=== PATIENT | male | born 1965 | race Caucasian/White ===

== ENCOUNTER 2017-02-06 12:14 | Emergency (ER) | payer BC ==
[2017-02-06 12:23] VITALS: BP 115/65; BMI 27.4
--- NOTE | 2017-02-06 12:33 | DR.GENAD ---
HPI - PCP Primary Care Physician: CAREY - Complaint/Symptoms Chief Complaint Doctors Comments: Patient states that he has had left flank for the past two hours. He has a history of kidney stones and this feels like one according to him. Chief Complaint:: PT THINKS HE HAS A KIDNEY STONE ON LEFT SIDE. PT STATES HE CAN 'T URINATE AND IS VOMITTING. - Source History Provided: Patient - Mode of Arrival Mode of Arrival: Ambulatory - Timing Onset of Chief Complaint: 02/06/17 PMH - PMH Past Medical History: Yes Past Medical History: CVA, Hypertension Past Medical History Comment: PACEMAKER Past Surgical History: Yes Surgical History: Cholecystectomy, Ortho Surgery Past Surgical History Comment: PACEMAKER - Family History History of Family Medical Conditions: Yes Family Medical History: Cancer, Coronary Artery Disease - Social History Does patient currently use any type of tobacco product: No Have you used tobacco products in the last 12 months: No Type of Tobacco Use: None Does any household member use tobacco: No Alcohol Use: None Do you use any recreational Drugs:: No Lives With: Alone Lives Where: Home - infectious screening In the last 2 months have you had wt loss of >10#?: NO Have you had fever, night sweats or hemotysis?: No Have you traveled outside the country in the last 6 months?: No Isolation: Standard ROS - Review of Systems Eyes: No Symptoms Reported ENTM: No Symptoms Reported Respiratoy: No Symptoms Reported Cardiovascular: No Symptoms Reported Gastrointestinal/Abdominal: No Symptoms Reported Genitourinary: Pain (left flank pain) Neurological: No Symptoms Reported Musculoskeletal: No Symptoms Reported Integumentary: No Symptoms Reported Hematologic/Lymphatic: No Symptoms Reported Endocrine: No Symptoms Reported Psychiatric: No Symptoms Reported All Other Systems: Reviewed and Negative PE - Vital Signs Vitals: Pulse Rate 74 Respiratory Rate 20 Blood Pressure [Left Arm] 184/81 Blood Pressure [Right Arm] 186/87 Blood Pressure 115/65 O2 Sat by Pulse Oximetry 98 - General Limitations: No Limitations General Appearance: Alert - Head Head Exam: Normal Inspection, Atraumatic - Eyes Eye exam: Normal Appearance, PERRL, EOMI - ENT ENT Exam: Normal Exam External Ear Exam: Normal External Inspection TM/Canal Exam: Bilateral Normal Nose Exam: Normal Nose Exam Mouth Exam: Normal Inspection Throat Exam: Normal Inspection - Neck Neck Exam: Normal Inspection, Full ROM - Chest Chest Inspection: Normal Inspection, Symmetric Chest Wall Rise - Respiratory Respiratory Exam: Normal Lung Sounds Bilat Respiratory Exam: Bilateral Clear to Auscultation - Cardiovascular Cardiovascular Exam: Regular Rate, Normal Rhythm - Abdominal Exam Abdominal Exam: Normal Inspection, Normal Bowel Sounds Abdominal Tenderness: negative: RUQ, RLQ, LUQ, LLQ, Epigastrium, Suprapubic, Diffuse, Mild, Moderate, Severe, Other - Extremities Extremities Exam: Normal Inspection, Full ROM - Back Back Exam: Normal Inspection, Full ROM, (L) CVA Tenderness - Neurologic Neurological Exam: Alert, Oriented X3, CN II-XII Intact - Psychiatric Psychiatric Exam: Normal Affect, Normal Mood - Skin Skin Exam: Warm, Dry, Intact ROR - Labs Reviewed Laboratory: Specimen Type Clean catch urine 02/06/17 12:35 Urine Color Mary (YELLOW) 02/06/17 12:35 Urine Appearance Cloudy (CLEAR) 02/06/17 12:35 Urine pH 5.0 (5.0 - 8.0) 02/06/17 12:35 Ur Specific [place] 1.030 (1.000-1.030) 02/06/17 12:35 Urine Protein 3+ (NEGATIVE) 02/06/17 12:35 Urine Glucose (UA) Negative (NEGATIVE) 02/06/17 12:35 Urine Ketones 1+ (NEGATIVE) 02/06/17 12:35 Urine Occult Blood 5+ (NEGATIVE) 02/06/17 12:35 Urine Nitrite Positive (NEGATIVE) 02/06/17 12:35 Urine Bilirubin 1+ (NEGATIVE) 02/06/17 12:35 Urine Urobilinogen 2+ (NORMAL) 02/06/17 12:35 Ur Leukocyte Esterase 1+ (NEGATIVE) 02/06/17 12:35 Urine RBC Tntc /HPF (NEGATIVE) 02/06/17 12:35 Urine WBC 2-4 /HPF (NEGATIVE) 02/06/17 12:35 Ur Squamous Epith Cells Rare /HPF (NEGATIVE) 02/06/17 12:35 Calcium Oxalate Crystal Many /HPF (NEGATIVE) 02/06/17 12:35 Amorphous Sediment 1+ /HPF (NEGATIVE) 02/06/17 12:35 Urine Bacteria Trace /HPF (NEGATIVE) 02/06/17 12:35 Coarse Granular Casts Few /HPF (NEGATIVE) 02/06/17 12:35 Urine Mucus Many /HPF (NEGATIVE) 02/06/17 12:35 Ur Culture Indicated? Yes/culture set up 02/06/17 12:35 - XRAY XRAY Interpreted by: Radiologist (CT Abd/Pel: There is a 3.5mm left ureteral calculus producing minimal obstruction at this time. Minimal ureteraldilatation is noted. No evidence of hydronephrosis is noted. Probable tiny nonobstructing calculi in both kidneys. Probable right varicocele.) - Diagnosis Discharge Problem: Ureteral calculus, left - Discharge Plan Condition: Stable - Follow ups/Referrals Follow ups/Referrals: King Kohler [Primary Care Provider] - 3 days - Instructions
[2017-02-06] MEDS ORDERED: TORADOL 30 MG VIAL IVP ONE (12:36)
[2017-02-06] MEDS ORDERED: ZOFRAN INJ 4 MG VIAL IVP ONE (12:37)
[2017-02-06] MEDS ORDERED: NS 1000 ML 1,000 ML ONE (12:38)
[2017-02-06] MEDS ORDERED: ZOFRAN INJ 4 MG VIAL ONE (12:38)
[2017-02-06] MEDS ORDERED: TORADOL 30 MG VIAL ONE (12:38)
[2017-02-06] MEDS ORDERED: DEMEROL INJ IVP ONE (12:45)
[2017-02-06] MEDS ORDERED: DEMEROL INJ ONE (12:47)
[2017-02-06] MEDS ORDERED: MORPHINE SULFATE INJ 4 MG IVP ONE (12:50)
[2017-02-06] MEDS ORDERED: MORPHINE SULFATE INJ 4 MG ONE (12:51)
[2017-02-06] MEDS ORDERED: NS 1000 ML 1,000 ML IV SCH (13:00)
[2017-02-06 13:02] LABS: BILIRUBIN,URINE 1+ (NEGATIVE); BLOOD/HEMOGLOBIN,URINE 5+ (NEGATIVE); GLUCOSE, URINE NEGATIVE (NEGATIVE); KETONES,URINE 1+ (NEGATIVE); LEUKOCYTE ESTERASE ,URINE 1+ (NEGATIVE); NITRITES,URINE POSITIVE (NEGATIVE); PROTEIN,URINE 3+ (NEGATIVE); UROBILINOGEN,URINE 2+ (NORMAL)
[2017-02-06 13:11] LABS: COLOR,URINE AMBER (YELLOW)
[2017-02-06 13:12] LABS: AMORPHOUS SEDIMENT,UR 1+ /HPF (NEGATIVE); APPEARANCE,URINE CLOUDY (CLEAR); BACTERIA,URINE TRACE /HPF (NEGATIVE); CALCIUM OXALATE CRYSTALS,UR MANY /HPF (NEGATIVE); MUCUS,URINE MANY /HPF (NEGATIVE); RBC,URINE TNTC /HPF (NEGATIVE); SQUAMOUS EPITHELIAL CELL,UR RARE /HPF (NEGATIVE)
[2017-02-06 13:13] LABS: COARSE GRANULAR CASTS,URINE FEW /HPF (NEGATIVE)
--- NOTE | 2017-02-06 14:27 | CT ---
HISTORY: Flank pain. Hematuria. Study: Computed tomography of the abdomen and pelvis: Multiple axial images were obtained throughout the abdomen and pelvis. Intravascular contrast was not administered. Oral contrast was not administe red. Radiation dose reduction techniques utilized. Comparison: 04/09/2015 Findings: The lung bases show minimal interstitial scarring. No evidence of pleural effusions are parenchymal i nfiltrates are identified. Mild cardiomegaly is noted. Patient has a pacemaker present with its leads projected in to the heart. A small hiatal hernia is present. The atelectatic change/infiltrate in th e lung bases on the prior examination has resolved. The liver is small but otherwise normal in its appearance. The spleen is normal with small splenic lo bules. The gallbladder is normal in its appearance. No appreciable biliary ductal dilatation is noted . The pancreas is normal. The adrenal glands are normal. The abdominal aorta is normal. No evidence o f retroperitoneal lymph node enlargement is identified. Mild atherosclerotic changes noted in the do ac vessels. The bladder contour is smooth. There may be a right-sided varicocele. Seminal vesicles ar e symmetric. The right kidney has a 2 mm nonobstructing calculus in the upper pole. Otherwise no other calculi are identified on the right. There may be small calculus in the lower pole of the left kidney. This is s omewhat amorphous. Very minimal left ureteral dilatation is noted proximally. This ureteral dilatatio n extends down to a intraureteral calculus measuring approximately 3.5 mm in maximum dimension. This is projected at the level of L4/L5 anterior to the psoas muscle. It is approximately 12 cm above the ureterovesical junction. Below this the ureter is nondilated. The right ureter is nondilated. The stomach is nondistended. The duodenum is normal. The small bowel appears normal. No evidence of m esenteric adenopathy is identified. The terminal ileum is normal. The appendix is identified and norm al. The ascending colon has a moderate amount of stool present. The transverse colon is nondistended. The descending colon is nondistended. The sigmoid colon is nondistended. Seminal vesicles are symmet ulises. There is minimal lumbar spondylosis is present. IMPRESSION: 1. There is a 3.5 mm left ureteral calculus producing minimal obstruction at this time. Minimal urete ral dilatation is noted. No evidence of hydronephrosis is noted. 2. Probable tiny nonobstructing calculi in both kidneys. 3. Probable right varicocele. Clinical correlation is recommended. Reported By:
== END 2017-02-06 15:00 | disposition home or self-care (01) ==
LOC: ER 12:26
DX: N20.1 Calculus of ureter (principal)
CPT/HCPCS: 74176; 81001; 87086; 96365; 96374; 96375; 99283; A4222; J1885; J2175; J2270; J2405

== ENCOUNTER 2017-02-21 01:59 | Emergency (ER) | payer BC ==
[2017-02-21 02:08] VITALS: BMI 27.2
[2017-02-21] MEDS ORDERED: NS 1000 ML 1,000 ML ONE (02:18)
[2017-02-21] MEDS ORDERED: TORADOL 30 MG VIAL ONE (02:18)
[2017-02-21] MEDS ORDERED: MORPHINE SULFATE INJ 4 MG ONE (02:19)
--- NOTE | 2017-02-21 02:32 | DR.GENAD ---
HPI - PCP Primary Care Physician: CAREY - Complaint/Symptoms Chief Complaint Doctors Comments: Patient presents with complaint of not being able to urinate and right flank pain. He was seen 02/06/17 diagnosed with minimal ureteral calculus obstruction with a 3.5mm stone. Chief Complaint:: KIDNEY STONES; CT REVEALED SEVERAL KIDNEY STONES Self Treatment fo Chief Complaint: HYDROCODONE X 2 SINCE 1600 - Source History Provided: Patient - Mode of Arrival Mode of Arrival: Ambulatory - Timing Onset of Chief Complaint: 01/31/17 PMH - PMH Past Medical History: Yes Past Medical History: CVA, Hypertension, Kidney Stones Past Medical History Comment: PACEMAKER Past Surgical History: No Surgical History: Cholecystectomy, Ortho Surgery Past Surgical History Comment: HERNIA REPAIR - Family History History of Family Medical Conditions: No Family Medical History: Cancer, Coronary Artery Disease - Social History Does patient currently use any type of tobacco product: Yes Have you used tobacco products in the last 12 months: Yes Type of Tobacco Use: None Alcohol Use: None Do you use any recreational Drugs:: No Lives With: Alone Lives Where: Home - infectious screening In the last 2 months have you had wt loss of >10#?: NO Have you had fever, night sweats or hemotysis?: No Have you traveled outside the country in the last 6 months?: No Isolation: Standard ROS - Review of Systems Eyes: No Symptoms Reported ENTM: No Symptoms Reported Respiratoy: No Symptoms Reported Cardiovascular: No Symptoms Reported Gastrointestinal/Abdominal: No Symptoms Reported Genitourinary: No Symptoms Reported Neurological: No Symptoms Reported Musculoskeletal: No Symptoms Reported Integumentary: No Symptoms Reported Hematologic/Lymphatic: No Symptoms Reported Endocrine: No Symptoms Reported Psychiatric: No Symptoms Reported All Other Systems: Reviewed and Negative PE - Vital Signs Vitals: Temperature 98.0 F Pulse Rate 72 Respiratory Rate 22 Blood Pressure [Left Arm] 184/81 Blood Pressure [Right Arm] 186/87 Blood Pressure 121/73 O2 Sat by Pulse Oximetry 97 - General General Appearance: Alert, In No Apparent Distress - Head Head Exam: Normal Inspection, Atraumatic - Eyes Eye exam: Normal Appearance, PERRL, EOMI - ENT ENT Exam: Normal Exam External Ear Exam: Normal External Inspection TM/Canal Exam: Bilateral Normal Nose Exam: Normal Nose Exam Mouth Exam: Normal Inspection Throat Exam: Normal Inspection - Neck Neck Exam: Normal Inspection, Full ROM - Chest Chest Inspection: Normal Inspection, Symmetric Chest Wall Rise - Respiratory Respiratory Exam: Normal Lung Sounds Bilat Respiratory Exam: Bilateral Clear to Auscultation - Cardiovascular Cardiovascular Exam: Regular Rate, Normal Rhythm - Abdominal Exam Abdominal Exam: Normal Inspection, Distention Abdominal Tenderness: negative: RUQ, RLQ, LUQ, LLQ, Epigastrium, Suprapubic, Diffuse, Mild, Moderate, Severe, Other - Extremities Extremities Exam: Normal Inspection - Back Back Exam: Normal Inspection, Full ROM - Neurologic Neurological Exam: Alert, Oriented X3, CN II-XII Intact - Psychiatric Psychiatric Exam: Normal Affect - Skin Skin Exam: Warm, Dry Course - Reevaluation 1st: Improved - Education/Counseling Educated On: Treatment, Diagnosis, Needs for Follow Up ROR - XRAY XRAY Interpreted by: Radiologist (CT Abd/pelv: Mild left sided hydroureteronephrosis, secondary to a 3-4 mm calculus within the distal left ureter. Nonobstructing right nehprolithiasis.) - Diagnosis Discharge Problem: Hydroureteronephrosis, Right nephrolithiasis - Discharge Plan Condition: Stable - Follow ups/Referrals Follow ups/Referrals: King Kohler [Primary Care Provider] - 3 days - Instructions
[2017-02-21] MEDS ORDERED: MORPHINE SULFATE INJ 4 MG IVP ONE (02:38)
[2017-02-21] MEDS ORDERED: TORADOL 30 MG VIAL IVP ONE (02:38)
[2017-02-21] MEDS ORDERED: NS 1000 ML 1,000 ML IV ONE (02:42)
[2017-02-21] MEDS ORDERED: NS 1000 ML 1,000 ML IV SCH (03:00)
[2017-02-21 03:46] LABS: BILIRUBIN,URINE NEGATIVE (NEGATIVE); BLOOD/HEMOGLOBIN,URINE 5+ (NEGATIVE); GLUCOSE, URINE NEGATIVE (NEGATIVE); KETONES,URINE NEGATIVE (NEGATIVE); LEUKOCYTE ESTERASE ,URINE 1+ (NEGATIVE); NITRITES,URINE NEGATIVE (NEGATIVE); PROTEIN,URINE 2+ (NEGATIVE); UROBILINOGEN,URINE NORMAL (NORMAL)
[2017-02-21 03:53] LABS: APPEARANCE,URINE CLEAR (CLEAR); BACTERIA,URINE TRACE /HPF (NEGATIVE); COLOR,URINE YELLOW (YELLOW); MUCUS,URINE FEW /HPF (NEGATIVE); RBC,URINE 25-30 /HPF (NEGATIVE); SQUAMOUS EPITHELIAL CELL,UR RARE /HPF (NEGATIVE)
--- NOTE | 2017-02-21 04:00 | CT ---
CT abdomen and pelvis without contrast Indication: Right flank pain Technique: Helical CT images of the abdomen and pelvis were obtained without IV contrast. Reformatted images in the coronal and sagittal planes were also generated for review. Comparison: 02/06/2017 Findings: Lung bases are clear. The visualized heart is mildly enlarged with pacing leads noted. No a ggressive osseous lesions are identified. Within the limits of a noncontrast exam, the liver, gallbladder, spleen, pancreas and adrenals are un remarkable. There is mild left-sided hydroureteronephrosis, secondary to a 3-4 mm stone within the di stal left ureter. There is a punctate, nonobstructing stone within the upper right kidney. No right-s ided hydroureteronephrosis is seen. The GI tract, including the appendix is normal. The IVC and abdominal aorta are normal. There is mild calcification iliofemoral systems without aneurysm. The urinary bladder is normal. The prostate is m ildly enlarged. No free air, free fluid or lymphadenopathy is identified. Impression: Mild left-sided hydroureteronephrosis, secondary to a 3-4 mm calculus within the distal left ureter. Nonobstructing right nephrolithiasis. Please refer to above for additional incidental findings. Reported By:
[2017-02-21 04:28] VITALS: BP 123/64
== END 2017-02-21 04:26 | disposition home or self-care (01) ==
LOC: ER 01:59
DX: N13.2 Hydronephrosis with renal and ureteral calculous obstruction (principal); N20.0 Calculus of kidney
CPT/HCPCS: 74176; 81001; 96365; 96374; 96375; 99282; 99283; A4222; J1885; J2270

== ENCOUNTER 2017-04-09 10:39 | Emergency (ER) | payer BC ==
[2017-04-09 10:45] VITALS: BMI 27.4
--- NOTE | 2017-04-09 11:24 | DR.HI ---
HPI - Time Seen Time seen: 10:45 - PCP Primary Care Physician: CAREY - HPI Comment HPI Comment: PATIENT DENIES TRAUMA. NO FEVER. - Complaint Chief Complaint:: PT C/O HAVING A CANALES THAT STARTED LAST NIGHT TO THE RIGHT SIDE OF HIS HEAD, THAT STARTED LAST NIGHT AND HE WAS WORRIED B/C OF HIS HX OF CVA,, PT ALSO C/O BEING UNSTEADY. Chief Complaint Doctors Comments: ATAXIA, RT SIDED HEADACHE SINCE LAST NIGHT. BP ELEVATED IN ED. Self Treatment fo Chief Complaint: TYLENOL - Reviewed Nurses Notes Review: Yes - Source History Provided: Patient - Mode of arrival Mode of Arrival: Ambulatory - Timing Onset of Chief Complaint: 04/08/17 - Context Symptoms:: Headache History of:: None Last tetanus: UTD Prehospital Care:: None - Severity Pain Severity: Moderate Severity code:: Walk-in - Location Location: Right, Parietal Location of injury: Right, Face - Associated signs and symptoms Associated signs and symptoms: Headache PMH - PMH Past Medical History: Yes Past Medical History: CVA, Hypertension, Kidney Stones Past Surgical History: Yes Surgical History: Cholecystectomy, Ortho Surgery Past Surgical History Comment: CVA - Family History History of Family Medical Conditions: Yes Family Medical History: Cancer, Coronary Artery Disease - Social History Does patient currently use any type of tobacco product: No Have you used tobacco products in the last 12 months: No Type of Tobacco Use: Smokeless Does any household member use tobacco: No Alcohol Use: None Do you use any recreational Drugs:: No Lives With: Family Lives Where: Home - infectious screening In the last 2 months have you had wt loss of >10#?: NO Have you had fever, night sweats or hemotysis?: No Have you traveled outside the country in the last 6 months?: No Isolation: Standard ROS - Review of Systems Constitutional: No Symptoms Reported Eyes: No Symptoms Reported ENTM: No Symptoms Reported. negative: Ear Pain, Nose Discharge, Nose Congestion , Throat Pain Respiratoy: No Symptoms Reported. negative: Productive Cough, Short of Breath, Wheezing, Hemoptysis Cardiovascular: No Symptoms Reported Gastrointestinal/Abdominal: No Symptoms Reported Genitourinary: No Symptoms Reported Neurological: Headache, Other (ATAXIA) Musculoskeletal: No Symptoms Reported Integumentary: No Symptoms Reported Hematologic/Lymphatic: No Symptoms Reported Endocrine: No Symptoms Reported All Other Systems: Reviewed and Negative PE - Vital Signs Vitals: Temperature 97.0 F Pulse Rate [Left Brachial] 81 Pulse Rate 74 Respiratory Rate 16 Blood Pressure [Left Arm] 134/82 Blood Pressure [Right Arm] 186/87 Blood Pressure 179/100 O2 Sat by Pulse Oximetry 100 - General Limitations: No Limitations General Appearance: Alert - Head Head Exam: Normal Inspection - Eyes Eye exam: Normal Appearance Eyelids: Normal Inspection: Bilateral Pupils: Regular, Round: Bilateral, Reactive: Bilateral Sclera/Conjunctival: Normal Inspection: Bilateral - ENT ENT Exam: Normal Exam, Normal External Ear Exam Nose Exam: Normal Nose Exam Mouth Exam: Normal Inspection - Neck Neck Exam: Normal Inspection - Respiratory Respiratory Exam: Normal Lung Sounds Bilat Respiratory Exam: Bilateral Clear to Auscultation - Cardiovascular Cardiovascular Exam: Regular Rate, Normal Rhythm, Normal Heart Sounds - Abdominal Exam Abdominal Exam: Normal Inspection, Normal Bowel Sounds. negative: Tenderness - Extremities Extremities Exam: Normal Inspection - Back Back Exam: Normal Inspection - Neurologic Neurological Exam: Alert, Oriented X3, CN II-XII Intact, Normal Gait, Reflexes Normal. negative: Motor Sensory Deficit - Psychiatric Psychiatric Exam: Normal Affect, Normal Mood - Skin Skin Exam: Normal Color Differential Diagnosis - Differential Diagnosis Differential Diagnosis: Other (CVA, TIA, MASS LESION, HEADACHE) Course - Treatment Treatment: SEE ORDERS. - Education/Counseling Education/Counseling: Patient, Education Educated On: Treatment, Diagnosis, Needs for Follow Up ROR - Labs Reviewed Laboratory Results Reviewed?: Yes Result Diagrams: 04/09/17 11:28 04/09/17 11:28 Laboratory: WBC 9.3 X10^3/uL (3.6-10.0) 04/09/17 11:28 RBC 5.56 X10^6/uL (4.7-6.0) 04/09/17 11:28 Hgb 15.0 g/dL (13.5-18.0) 04/09/17 11:28 Hct 44.1 % (42.0-54.0) 04/09/17 11:28 MCV 79.3 fL (80.0-100.0) L 04/09/17 11:28 MCH 27.0 pg (27.0-34.0) 04/09/17 11:28 MCHC 34.0 g/dL (33.0-35.0) 04/09/17 11:28 RDW 13.9 % (11.6-16.5) 04/09/17 11:28 Plt Count 232 X10^3/uL (150.0-450.0) 04/09/17 11:28 MPV 7.9 fL (7.4-11.0) 04/09/17 11:28 Neut % 64.0 % (42.0-75.0) 04/09/17 11:28 Lymph % 26.3 % (21.0-51.0) 04/09/17 11:28 Shannon % 8.4 % (0.0-13.0) 04/09/17 11:28 Eos % 0.5 % (0.9-2.9) L 04/09/17 11:28 Baso % 0.8 % (0.2-1.0) 04/09/17 11:28 Neut # 5.9 x10^3/uL (2.2-4.8) H 04/09/17 11:28 Lymph # 2.4 X10^3/uL (1.3-2.9) 04/09/17 11:28 Shannon # 0.8 x10^3/uL (0.3-0.8) 04/09/17 11:28 Eos # 0.0 x10^3/uL (0.0-0.2) 04/09/17 11:28 Baso # 0.1 X10^3/uL (0.0-0.1) 04/09/17 11:28 Absolute Nucleated RBC 0.0 /100WBC 04/09/17 11:28 Sodium 141 mmol/L (136-145) 04/09/17 11:28 Corrected Sodium TNP 04/09/17 11:28 Potassium 4.1 mmol/L (3.5-5.1) 04/09/17 11:28 Chloride 105 mmol/L (98-107) 04/09/17 11:28 Carbon Dioxide 27.4 mmol/L (21-32) 04/09/17 11:28 BUN 9 mg/dL (7-18) 04/09/17 11:28 Creatinine 0.92 mg/dL (0.70-1.30) 04/09/17 11:28 Est GFR (MDRD) Af Amer > 60 (>60) 04/09/17 11:28 Est GFR (MDRD) Non-Af > 60 (>60) 04/09/17 11:28 Glucose 93 mg/dL (65-99) 04/09/17 11:28 Calcium 9.1 mg/dL (8.5-10.1) 04/09/17 11:28 Corrected Calcium TNP 04/09/17 11:28 Total Bilirubin 0.60 mg/dL (0.2-1.0) 04/09/17 11:28 AST 21 Units/L (15-37) 04/09/17 11:28 ALT 36 Units/L (12-78) 04/09/17 11:28 Alkaline Phosphatase 146 Units/L (46-116) H 04/09/17 11:28 Creatine Kinase 97 Units/L (39-308) 04/09/17 11:28 CK-MB (CK-2) < 1.0 ng/mL (0-4.0) 04/09/17 11:28 CK/CKMB % Calc 1.0 % (<4) 04/09/17 11:28 Troponin I < 0.02 ng/mL (0-1.5) 04/09/17 11:28 Total Protein 7.2 g/dL (6.4-8.2) 04/09/17 11:28 Albumin 3.7 g/dL (3.4-5.0) 04/09/17 11:28 Globulin 3.5 g/dL (2.5-4.5) 04/09/17 11:28 Albumin/Globulin Ratio 1.1 Ratio (1.1-2.1) 04/09/17 11:28 - XRAY XRAY Interpreted by: Radiologist XRAY Findings: REPORT DISCUSS WITH PATIENT. - EKG Rhythm: NSR (EKG NOTED) - Diagnosis Discharge Problem: Ataxia Hypertension Qualifiers: Hypertension type: unspecified Qualified Code(s): I10 - Essential (primary) hypertension Head ache Qualifiers: Headache type: unspecified Headache chronicity pattern: acute headache Intractability: intractable Qualified Code(s): R51 - Headache - Discharge Plan Disposition: HOME, SELF-CARE Condition: Stable - Follow ups/Referrals Follow ups/Referrals: King Kohler [Primary Care Provider] - 3 days - Instructions Instructions: Ataxia, Headache and Arthritis, Hypertension, [id number] Additional Instructions: RETURN TO ED IF WORSE.
[2017-04-09 11:33] LABS: BASOPHILS # (AUTO) 0.1 X10^3/uL (0.0-0.1); BASOPHILS % (AUTO) 0.8 % (0.2-1.0); EOSINOPHILS % (AUTO) 0.5 % (0.9-2.9); HEMATOCRIT 44.1 % (42.0-54.0); LYMPHOCYTES # (AUTO) 2.4 X10^3/uL (1.3-2.9); LYMPHOCYTES % (AUTO) 26.3 % (21.0-51.0); MEAN CORPUSCULAR VOLUME 79.3 fL (80.0-100.0); MEAN PLATELET VOLUME 7.9 fL (7.4-11.0); MONOCYTES # (AUTO) 0.8 x10^3/uL (0.3-0.8); MONOCYTES % (AUTO) 8.4 % (0.0-13.0); NEUTROPHILS # (AUTO) 5.9 x10^3/uL (2.2-4.8); PLATELET COUNT 232 X10^3/uL (150.0-450.0); RED BLOOD COUNT 5.56 X10^6/uL (4.7-6.0); RED CELL DISTRIBUTION WIDTH 13.9 % (11.6-16.5); WHITE BLOOD COUNT 9.3 X10^3/uL (3.6-10.0)
--- NOTE | 2017-04-09 11:45 | CT ---
CT brain without contrast Indication: Headache Comparison: 05/10/16 Technique: Multiple axial images of the brain were obtained from the skull base to the vertex without administra tion of IV contrast. Findings: There is a chronic, unchanged infarct within the left caudate head and basal ganglia. Mild generalize d cerebral atrophy. No acute intraparenchymal hemorrhage or mass can be identified. No extra-axial fluid collections are seen. No alteration in the attenuation of the brain parenchyma can be identified to suggest acute o r subacute ischemic change. The ventricular system is symmetric and nondilated. The extracranial st ructures are grossly unremarkable. IMPRESSION: 1. No acute intracranial hemorrhage or change from prior examination. 2. Remote infarct within the left basal ganglia. Reported By:
[2017-04-09 11:52] LABS: BLOOD UREA NITROGEN 9 mg/dL (7-18); CALCIUM 9.1 mg/dL (8.5-10.1); CARBON DIOXIDE 27.4 mmol/L (21-32); CHLORIDE 105 mmol/L (98-107); CREATININE 0.92 mg/dL (0.70-1.30); SODIUM 141 mmol/L (136-145); TROPONIN I < 0.02 ng/mL (0-1.5); eGFR BLACK RACES > 60 (>60); eGFR NON BLACK RACES > 60 (>60)
[2017-04-09 12:00] LABS: ALANINE AMINOTRANSFERASE 36 Units/L (12-78); ALBUMIN 3.7 g/dL (3.4-5.0); ALKALINE PHOSPHATASE 146 Units/L (46-116); ASPARTATE AMINO TRANSFERASE 21 Units/L (15-37); CREATINE KINASE 97 Units/L (39-308); CREATINE KINASE MB < 1.0 ng/mL (0-4.0); TOTAL PROTEIN 7.2 g/dL (6.4-8.2)
[2017-04-09 12:01] VITALS: BP 134/82
== END 2017-04-09 12:44 | disposition home or self-care (01) ==
LOC: ER 10:48
DX: R27.0 Ataxia, unspecified (principal); I10 Essential (primary) hypertension; R51 Headache
CPT/HCPCS: 36415; 70450; 80053; 82550; 82553; 84484; 85025; 93005; 93010; 99283